=== PATIENT | female | born 1945 | race Caucasian/White ===

== ENCOUNTER 2023-10-06 11:47 | Outpatient (AMB) | payer MEDICARE, SELFPAY ==
--- NOTE | 2023-10-06 12:16 | AM.OFFWIN_ITS ---
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 While every effort has been made to ensure accuracy, automatic wheel line operator errors may have been included. 78-year-old sexually active female prese nts with 1 day history of blood in urine. She denies frequency, urgency, burning. She notes that she voided in the urine looked quite pink, as she voided a 2nd time several minutes later it was pink again, and continued to have more redness involved in the color of the urine. She denies vaginal discharge, lesions. She notes that she still has a uterus, no previous signs with postmenopausal bleeding. No back or abdomen pain. PFSH Social History Patient Tobacco Use Status: Never used Tobacco Review of Systems Const All systems reviewed & are unremarkable except as noted in HPI and below Physical Exam Vital Signs: Last Vital Signs Temp 97.9 F 10/06/23 12:17 Pulse 80 10/06/23 12:17 BP 112/62 10/06/23 12:17 Pulse Ox 97 10/06/23 12:17 Oxygen Delivery Method Room Air 10/06/23 12:17 Const General: cooperative, healthy appearing, comfortable, no acute distress and alert Orientation/consciousness: patient oriented x3 Limitations: no limitations GI Inspection: Yes normal to inspection Palpation (GI): Soft to palpation and nontender Percussion: Yes normal to percussion Auscultation: normal bowel sounds General: Yes no CVA tenderness Back/Spine/Pelvis Back: no CVA tenderness Skin General skin exam: no rashes or lesions noted, elasticity normal and turgor normal Neuro General: patient oriented x3 Psych Appearance: grossly normal Mental Status: mental status grossly normal Speech and movement: Normal speech and movement present Affect: normal affect Assessment & Plan Assessment & Plan (1) Acute bacterial simple cystitis: Code(s): N30.80 - Other cystitis without hematuria; B96.89 - Other specified bacterial agents as the cause of diseases classified elsewhere Plan: Advised to increase hydration, antimicrobials sent to local pharmacy. Advised follow-up with PCP for consideration repeat testing given blood present in postmenopausal woman, however highly likely related to infection. Plan See above for full details and plan. Medications: New nitrofurantoin monohyd/m-cryst 100 mg must administer with a meal/food 100 mg PO Q12H 5 days 10 caps 0RF Coding Level of Care Code New Pt Level 3 (97262) Diagnoses Acute bacterial simple cystitis N30.80; B96.89
[2023-10-06 12:17] VITALS: BP 112/62; PULSE 80; TEMP 36.6; O2SAT 97
== END 2023-10-06 13:06 | disposition home or self-care (01) ==
PROVIDERS: Visit Provider Registered Nurse
DX: N30.80 Other cystitis without hematuria (principal); B96.89 Other specified bacterial agents as the cause of diseases classified elsewhere
CPT/HCPCS: 81003; 99203